=== PATIENT | male | born 1990 | race Caucasian/White ===

== ENCOUNTER 2022-02-12 07:30 | Inpatient (IN) | payer MEDICAID, OTHER ==
[2022-02-12] MEDS ORDERED: Magnesium 2 GM/50 ML BAG (IN WATER) ONE (07:58)
[2022-02-12 08:09] LABS: #Eosinphils 0.3 thou/uL (0.0-0.7); #Monocytes 1.2 thou/uL (0.11-0.59); #Neutrophils 7.9 thou/uL (1.40-6.50); %Basophils 0.2 % (0.0-1.0); %Eosinophils 2.2 % (0.0-10.0); %Lymphocytes 29.6 % (21.0-51.0); %Monocytes 9.1 % (0.0-10.0); %Neutrophils 58.9 % (42.0-75.0); Mean Corpuscular HGB CONC 34.2 g/dL (32.0-36.0); Mean Corpuscular Hemoglobin 32.3 pg (27.0-31.0); Mean Corpuscular Volume 94.4 fL (78.0-98.0); Platelet Count 162 thou/uL (130-400); RBC Distribution Width 10.9 % (11.5-14.5); Red Blood Cell (RBC) Count 4.96 mill/uL (4.70-6.10); White Blood Cell (WBC) Count 13.4 thou/uL (4.8-10.8)
[2022-02-12 08:28] LABS: ALT (SGPT) 21 U/L (8-55); AST (SGOT) 24 U/L (5-34); Albumin 4.6 g/dL (3.5-5.0); Alkaline Phosphatase 63 U/L (40-110); Anion Gap 14 mmol/L (10-20); BUN (Urea Nitrogen) 12 mg/dL (8.9-20.6); Bilirubin, Total 1.1 mg/dL (0.2-1.2); Calc. Creatinine Clearance 0 mL/min (70-130); Calcium 9.8 mg/dL (7.8-10.44); Carbon Dioxide 25 mmol/L (22-29); Chloride 105 mmol/L (98-107); Globulin 2.8 g/dL (2.4-3.5); Glucose 104 mg/dL (70-105); Potassium 3.9 mmol/L (3.5-5.1); Protein, Total 7.4 g/dL (6.0-8.3); Sodium 140 mmol/L (136-145)
[2022-02-12] MEDS ORDERED: Diltiazem HCl 125 MG in Premix Bag 1 BAG IVPB SCH ×2 (09:15→19:45)
[2022-02-12 09:36] LABS: Amphetamine Not Detected (NotDetected); Barbiturates Screen Not Detected (NotDetected); Benzodiazepine Screen Not Detected (NotDetected); Cocaine Metabolite Screen Not Detected (NotDetected); Methadone Not Detected (NotDetected); Methamphetamine Not Detected (NotDetected); Opiate Screen Not Detected (NotDetected); Oxycodone Screen Not Detected (NotDetected); Phencyclidine (PCP) Not Detected (NotDetected); THC/Cannabinoid Screen Not Detected (NotDetected); Tricyclic Screen Not Detected (NotDetected)
[2022-02-12] MEDS ORDERED: Acetaminophen 325 MG TAB PO PRN (10:24)
[2022-02-12] MEDS ORDERED: Acetaminophen 650 MG Suppository PR PRN (10:24)
[2022-02-12] MEDS ORDERED: Ondansetron ODT 4 MG TAB PO PRN (10:26)
[2022-02-12] MEDS ORDERED: Lorazepam 1 MG TAB PO PRN (10:26)
[2022-02-12] MEDS ORDERED: Lorazepam 2 MG/ML VIAL IM PRN (10:26)
[2022-02-12] MEDS ORDERED: Diltiazem 125 MG in Sodium Chloride 0.9% 100 ML IVPB SCH (10:30)
[2022-02-12] MEDS ORDERED: Electrolyte Replacement Protocol 1 EACH FS SCH (10:30)
[2022-02-12] MEDS ORDERED: Enoxaparin Sodium 80 MG/0.8 ML SYRINGE ONE (10:32)
[2022-02-12 11:17] LABS: Troponin I 0.012 ng/mL (< 0.028)
[2022-02-12] MEDS ORDERED: Multivit, Therapeutic 1 TAB PO SCH (11:30)
[2022-02-12] MEDS ORDERED: Folic Acid 1 MG TAB PO SCH (11:30)
[2022-02-12] MEDS ORDERED: Electrolyte Replacement Protocol FS PRN (11:30)
[2022-02-12] MEDS: Lorazepam 1 MG TAB PO SCH ×3 (13:22→23:48)
[2022-02-12] MEDS: Thiamine HCl 200 MG/2 ML VIAL SLOW IVP SCH (13:22)
[2022-02-12 13:51] LABS: Syphilis Antibody Nonreactive (Nonreactive); Syphilis Antibody Index 0.03 S/CO (<1.00 Non-Reactive)
[2022-02-12 14:52] VITALS: BMI 22.1
[2022-02-12] MEDS: Enoxaparin Sodium 80 MG/0.8 ML SYRINGE SC SCH (20:10)
[2022-02-13 04:51] LABS: #Eosinphils 0.3 thou/uL (0.0-0.7); #Monocytes 0.8 thou/uL (0.11-0.59); #Neutrophils 4.1 thou/uL (1.40-6.50); %Basophils 0.2 % (0.0-1.0); %Eosinophils 3.3 % (0.0-10.0); %Lymphocytes 36.6 % (21.0-51.0); %Neutrophils 49.9 % (42.0-75.0); Hemoglobin 14.7 g/dL (14.0-18.0); Mean Corpuscular HGB CONC 34.8 g/dL (32.0-36.0); Mean Corpuscular Volume 94.8 fL (78.0-98.0); Platelet Count 160 thou/uL (130-400); RBC Distribution Width 11.3 % (11.5-14.5); Red Blood Cell (RBC) Count 4.46 mill/uL (4.70-6.10); White Blood Cell (WBC) Count 8.2 thou/uL (4.8-10.8)
[2022-02-13 05:16] LABS: ALT (SGPT) 16 U/L (8-55); AST (SGOT) 13 U/L (5-34); Albumin 4.2 g/dL (3.5-5.0); Alkaline Phosphatase 57 U/L (40-110); Anion Gap 14 mmol/L (10-20); BUN (Urea Nitrogen) 14 mg/dL (8.9-20.6); Bilirubin, Total 0.7 mg/dL (0.2-1.2); Calc. Creatinine Clearance 130 mL/min (70-130); Calcium 9.4 mg/dL (7.8-10.44); Carbon Dioxide 22 mmol/L (22-29); Chloride 108 mmol/L (98-107); Globulin 2.6 g/dL (2.4-3.5); Glucose 103 mg/dL (70-105); Magnesium 1.9 mg/dL (1.6-2.6); Potassium 3.8 mmol/L (3.5-5.1); Protein, Total 6.8 g/dL (6.0-8.3); Sodium 140 mmol/L (136-145)
[2022-02-13] MEDS: Lorazepam 1 MG TAB PO SCH ×2 (05:31→12:41)
[2022-02-13] MEDS ORDERED: Magnesium 2 GM/50 ML(in water) 2 GM in Premix Bag 1 BAG IVPB SCH (06:30)
[2022-02-13 08:43] VITALS: BP 109/62; TEMP 97.6
[2022-02-13] MEDS: Enoxaparin Sodium 80 MG/0.8 ML SYRINGE SC SCH (08:43)
[2022-02-13] MEDS ORDERED: Folic Acid 1 MG TAB PO SCH (09:00)
[2022-02-13] MEDS ORDERED: Lisinopril 2.5 MG TAB PO SCH (09:00)
[2022-02-13] MEDS ORDERED: Multivit, Therapeutic 1 TAB PO SCH (09:00)
[2022-02-13] MEDS ORDERED: ADENOSINE 60 MG/20 ML VIAL ONE (09:29)
[2022-02-13] MEDS ORDERED: Lorazepam 1 MG TAB PO PRN (10:27)
[2022-02-13] MEDS: Thiamine HCl 200 MG/2 ML VIAL SLOW IVP SCH (12:41)
[2022-02-14] MEDS ORDERED: Lorazepam 1 MG TAB PO PRN (10:27)
[2022-02-14] MEDS ORDERED: Lorazepam 0.5 MG TAB PO SCH (12:00)
[2022-02-15] MEDS ORDERED: Thiamine 100 MG TAB PO SCH (09:00)
[2022-02-15] MEDS ORDERED: Lorazepam 0.5 MG TAB PO PRN (10:27)
== END 2022-02-13 12:21 | disposition left against medical advice (07) | DRG 310 ==
LOC: ERS 07:30 → OBSVTOIN 09:38 → 2SW 09:38
PROVIDERS: ADMIT Internal Medicine; ATTEND Internal Medicine
DX: I48.0 Paroxysmal atrial fibrillation (principal); F10.20 Alcohol dependence, uncomplicated; D72.829 Elevated white blood cell count, unspecified; F17.210 Nicotine dependence, cigarettes, uncomplicated; Z53.29 Procedure and treatment not carried out because of patient's decision for other reasons; F41.0 Panic disorder [episodic paroxysmal anxiety]; Z82.49 Family history of ischemic heart disease and other diseases of the circulatory system; Z71.6 Tobacco abuse counseling
CPT/HCPCS: 36415; 71045; 78451; 80053; 80306; 83735; 83880; 84484; 85025; 85379; 86780; 93005; 93017; 93306; 96365; 96366; 96372; 96375; 96376; 99292; A9500; J0153; J1650; J3411; J3475

== ENCOUNTER 2023-05-06 18:59 | Emergency (ER) | payer OTHER, SELFPAY ==
[2023-05-06 20:14] LABS: #Basophils 0.1 thou/uL (0.0-0.2); #Eosinphils 0.2 thou/uL (0.0-0.7); #Monocytes 0.8 thou/uL (0.11-0.59); #Neutrophils 7.8 thou/uL (1.40-6.50); %Basophils 0.4 % (0.0-1.0); %Eosinophils 1.5 % (0.0-10.0); %Lymphocytes 21.8 % (21.0-51.0); %Monocytes 6.8 % (0.0-10.0); %Neutrophils 69.1 % (42.0-75.0); Hemoglobin 15.9 g/dL (14.0-18.0); Mean Corpuscular HGB CONC 35.3 g/dL (32.0-36.0); Mean Corpuscular Hemoglobin 30.9 pg (27.0-31.0); Mean Corpuscular Volume 87.5 fl (78.0-98.0); Mean Platelet Volume 11.4 fL (7.4-10.4); Platelet Count 187 10x3/uL (130-400); RBC Distribution Width 11.6 % (11.5-14.5); Red Blood Cell (RBC) Count 5.14 mill/uL (4.70-6.10); White Blood Cell (WBC) Count 11.3 10x3/uL (4.8-10.8)
[2023-05-06 20:35] LABS: ALT (SGPT) 17 U/L (8-55); AST (SGOT) 15 U/L (5-34); Albumin 4.9 g/dL (3.5-5.0); Alkaline Phosphatase 62 U/L (40-110); Anion Gap 18 mmol/L (10-20); BUN (Urea Nitrogen) 16 mg/dL (8.9-20.6); Bilirubin, Total 0.9 mg/dL (0.2-1.2); Calc. Creatinine Clearance 0 mL/min (70-130); Calcium 9.8 mg/dL (7.8-10.44); Carbon Dioxide 25 mmol/L (22-29); Chloride 101 mmol/L (98-107); Estimated GFR 94; Globulin 3.3 g/dL (2.4-3.5); Glucose 102 mg/dL (70-105); Potassium 4.5 mmol/L (3.5-5.1); Protein, Total 8.2 g/dL (6.0-8.3); Sodium 139 mmol/L (136-145)
== END 2023-05-06 21:20 | disposition home or self-care (01) ==
LOC: ERS 18:59
DX: R07.89 Other chest pain (principal); F17.210 Nicotine dependence, cigarettes, uncomplicated
CPT/HCPCS: 36415; 71045; 80053; 84484; 85025; 93005